=== PATIENT | male | born 1965 | race Caucasian/White ===

== ENCOUNTER 2017-08-13 07:26 | Day surgery (SDC) | payer MEDICAID ==
[2017-07-20 09:53] VITALS: BMI 23.8
[2017-08-13] MEDS ORDERED: Lactated Ringer's 1,000 ML IV ONE (08:15)
[2017-08-13 08:27] VITALS: RESP 18
[2017-08-13] MEDS ORDERED: Lidocaine 2% Inj (20ml) ONE (09:08)
[2017-08-13] MEDS ORDERED: cefTRIAXone (Rocephin) 1 gm Inj ONE (09:09)
[2017-08-13] MEDS ORDERED: ePHEDrine 50 mg/ml Inj ONE (09:15)
[2017-08-13] MEDS ORDERED: Propofol 10 mg/ml Inj (20 ML) ONE (09:15)
[2017-08-13] MEDS ORDERED: Succinylcholine 200 mg/10 ml Inj IV ONE (09:15)
[2017-08-13] MEDS ORDERED: cefTRIAXone (Rocephin) 1 gm Inj IM ONE (09:27)
[2017-08-13] MEDS ORDERED: Lidocaine 2% Inj (20ml) IJ ONE ×2 (09:49→09:54)
[2017-08-13] MEDS ORDERED: HYDROmorphone 0.5 mg/0.5 ml ISec IVP PRN (10:08)
--- NOTE | 2017-08-13 10:34 | PCM.SURG1 ---
Surgeon's Initial Post Op Note - Surgeon's Notes Surgeon: Dr. Dye Felt Cementer: Lisbet Altamirano PGY2 Type of Anesthesia: General LMA, Local Pre-Operative Diagnosis: L hydrocele Operative Findings: L hydrocele 300cc clear yellow fluids Post-Operative Diagnosis: SAme Operation Performed: L hydrocelectomy Specimen/Specimens Removed: Tunica vaginalis L side, Hydrocele fluids Estimated Blood Loss: EBL {In ML}: 5 Blood Products Given: N/A Drains Used: No Drains Post-Op Condition: Good Date of Surgery/Procedure: 08/13/17 Time of Surgery/Procedure: 10:34
[2017-08-13 11:54] VITALS: TEMP 97.5; O2SAT 99
[2017-08-13 12:44] VITALS: BP 149/89; PULSE 68
--- NOTE | 2017-08-17 12:31 | CARD ---
APPROVED REPORT EKG Measurement Heart [id number] <Conclusion> Sinus bradycardia Possible Left atrial enlargement Incomplete right bundle branch block Left ventricular hypertrophy Abnormal ECG
--- NOTE | 2017-08-21 21:36 | OP ---
PROCEDURE DATE: 08/13/2017 PREOPERATIVE DIAGNOSIS: Left hydrocele. POSTOPERATIVE DIAGNOSIS: Left hydrocele. PROCEDURE PERFORMED: Left hydrocelectomy. DESCRIPTION OF PROCEDURE: With the patient on the operating room table in a supine position, he was given general anesthesia. The area of the groin was draped and prepped in a sterile manner. Using a scalpel made an incision on the broadest part of the left hemiscrotum, I then with blunt dissection enucleated the hydrocele up onto the operative field. I incised into the hydrocele and the outflow was straw yellow colored fluid with no blood and probably about 400 mL in quantity. Once this was drained out, I used the cautery pencil to cauterized and removed the majority of the hydrocele sac and once that was removed, I ran a running suture to occluded the edges of the hydrocele sac that was remaining. Once this was done, I inspected for blood in the scrotal cavity, there was none and I then reinserted the testicle back into the scrotal cavity and did a 2-layer closure with interrupted chromic. Blood loss was minimal. The patient at that time then the skin edges were sealed with Dermabond followed by a Tegaderm dressing over the wound site. The patient was taken from the operating room in good condition. Ramirez Dye MD
== END 2017-08-13 12:54 | disposition home or self-care (01) ==
LOC: H.OPSURG 07:26
PROVIDERS: ATTEND Urology
DX: N43.3 Hydrocele, unspecified (principal)
CPT/HCPCS: 55040; 88304; 88305; 93005; J0330; J0696; J2001; J2704; J2765; J3010; J7030; J7120